=== PATIENT | female | born 1970 | race Caucasian/White ===

== ENCOUNTER 2016-04-02 18:10 | Emergency (ER) | payer OTHER ==
[~2016-04-02] VITALS: Ht 160 cm; Wt 93.0 kg
[~2016-04-02 18:10] MED LIST: ACHD5005 PO; ALPR1TAB2 PO; BTR10SP2 NS; BUSP10TA95 PO; CELEXA; CYCL10TA9 PO; DULO30CA PO; ESTR1TAB24 PO; FURO40TA4 PO; GABA-488 PO; HYDR-91 PO; HYDR1TAB8 OP; STADOL NS; SULF1TAB38 PO; TORADOL 10 MG PO; TRAM50TA2 PO; ZLP10T PO; ZLP5T PO; ZOLP10TA PO
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
[2016-04-02] MEDS ORDERED: ZOLP5TAB7 PO (18:33)
[2016-04-02] MEDS ORDERED: GABA-490 PO (18:33)
[2016-04-02] MEDS ORDERED: GABA600T2 PO (18:33)
[2016-04-02] MEDS ORDERED: ORPH100T PO (18:33)
[2016-04-02 18:54] LABS: BASOPHILS % (AUTO) 1 % (0-10); EOSINOPHILS # (AUTO) 0.4 10^3/uL (0.0-0.3); EOSINOPHILS % (AUTO) 6 % (0-10); LYMPHOCYTES % (AUTO) 28 % (12-44); MEAN CORPUSCULAR HEMOGLOBIN 31 PG (25-34); MEAN CORPUSCULAR HGB CONC 33 G/DL (32-36); MEAN CORPUSCULAR VOLUME 92 FL (80-99); MEAN PLATELET VOLUME 9.5 FL (7.4-10.4); MONOCYTES # (AUTO) 0.5 X 10^3 (0.0-1.0); MONOCYTES % (AUTO) 7 % (0-12); NEUTROPHILS # (AUTO) 4.1 X 10^3 (1.8-7.8); NEUTROPHILS % (AUTO) 58 % (42-75); PLATELET COUNT 249 10^3/uL (130-400); RED CELL DISTRIBUTION WIDTH 14.7 % (10.0-14.5)
--- NOTE | 2016-04-02 19:13 | Diagnostic Imaging Report ---
INDICATION: Seizures. EXAMINATION: Noncontrast brain CT was performed. COMPARISON: 01/26/15. FINDINGS: There are no extra-axial fluid collections. No intracranial hemorrhage. No intracranial mass or mass effect. No midline shift. The ventricles are normal in size and position. There is some asymmetry in the appearance of the frontal horns, which is likely a normal variant, unchanged compared to the prior study. Calvarial windows appear normal. IMPRESSION: No acute intracranial abnormality and no significant change from 01/26/15. Dictated by: Dictated on workstation # [id number]
[2016-04-02 19:14] LABS: ALANINE AMINOTRANSFERASE 13 U/L (0-55); ALBUMIN 3.9 G/DL (3.2-4.5); ALCOHOL 11 MG/DL (<10); ANION GAP 12 MMOL/L (5-14); ASPARTATE AMINO TRANSFERASE 15 U/L (5-34); BILIRUBIN,TOTAL 0.3 MG/DL (0.1-1.0); BLOOD UREA NITROGEN 8 MG/DL (7-18); BUN/CREATININE RATIO 9; CARBON DIOXIDE 25 MMOL/L (21-32); CHLORIDE 104 MMOL/L (98-107); CREATINE KINASE 112 U/L (29-168); CREATININE SERUM 0.88 MG/DL (0.60-1.30); GFR ESTIMATED > 60; GLUCOSE 105 MG/DL (70-105); MAGNESIUM 1.9 MG/DL (1.8-2.4); SODIUM 141 MMOL/L (135-145); TOTAL PROTEIN 6.9 G/DL (6.4-8.2)
[2016-04-02 19:20] LABS: TROPONIN I < 0.30 NG/ML (<0.30)
--- NOTE | 2016-04-02 19:38 | Diagnostic Imaging Report ---
INDICATION: Seizure Frontal chest obtained at 6:47 p.m. with comparison to 11/05/15. Study is limited by very poor inspiration. The heart is mildly enlarged. There is some minimal infiltrate or atelectasis in the right base. Left lung is grossly clear. There is no pneumothorax or pleural fluid. IMPRESSION: Very poor inspiration with cardiomegaly and mild right basilar atelectatic change versus infiltrate. The findings appears similar on the prior study of 11/05/15. Dictated by: Dictated on workstation # [id number]
[2016-04-02 20:08] LABS: BILIRUBIN,URINE NEGATIVE (NEGATIVE); KETONES,URINE NEGATIVE (NEGATIVE); LEUKOCYTE ESTERASE ,URINE NEGATIVE (NEGATIVE); NITRITE,URINE NEGATIVE (NEGATIVE); PH,URINE 6 (5-9); PROTEIN,URINE NEGATIVE (NEGATIVE); UROBILINOGEN,URINE NORMAL (NORMAL)
--- NOTE | 2016-04-02 21:04 | Diagnostic Imaging Report ---
INDICATION: Right clavicle pain. EXAMINATION: AP and oblique views of the right clavicle were obtained. FINDINGS: No fracture or acute bony abnormality is seen. IMPRESSION: Negative right clavicle. Dictated by: Dictated on workstation # [id number]
[2016-04-02 21:10] VITALS: BP 155/81
== END 2016-04-02 21:10 | disposition home or self-care (01) ==
LOC: EDUNIT# 18:10 → ER 18:11
DX: R56.9 Unspecified convulsions (principal); S40.011A Contusion of right shoulder, initial encounter; Z79.899 Other long term (current) drug therapy; W18.30XA Fall on same level, unspecified, initial encounter; Y99.8 Other external cause status
CPT/HCPCS: 36415; 70450; 71010; 73000; 80053; 80306; 80320; 81000; 82550; 83735; 84484; 85025; 93005

== ENCOUNTER → 2016-04-22 | Outpatient (CLI) | payer OTHER ==
[~2016-04-22] MED LIST changes: +AMIT150T PO; +DIAZ5TAB3 PO; +GABA-490 PO; +GABA600T2 PO; +MELO7.5T46 PO; +ORPH100T PO; +ZOLP5TAB7 PO
--- NOTE | 2016-04-30 10:52 | ELECTROENCEPHALOPATHY REPORT ---
PROCEDURE PHYSICIAN: MORRO BOB DATE OF PROCEDURE: 04/22/2016 Ms. Reva Rush is a 46-year-old female who had a seizure episode on 04/04/2016. The family witnessed a tonic-clonic seizure activity. There was no loss of bladder and bowel. The patient has no recollection of the event. The event lasted approximately 2 to 3 minutes. The patient felt extremely tired following the event. This study was requested to evaluate for epileptiform activity. The background rhythm consisted of 9 to 10 Hz, 50 to 70 microvolts in amplitude, bilaterally symmetrical over the vertex region which was reactive to eye opening. Intermix were a few left temporal sharp waves. Pulse movement and muscle artifacts were present. The patient was awake, drowsy and asleep during this recording. Hyperventilation was performed and there was no build-up of diffuse or focal slow wave activity. Intermittent photic stimulation was done at various flash frequencies and no photic driving response was seen. IMPRESSION: This EEG is abnormal in awake and sleepy states. The epileptiform activity described above is suggestive of a seizure focus in the left temporal lobe. Clinical correlation is suggested. Job ID: [id number] Dictated Date: 04/30/2016 10:30:16 Transition Coach Date: 04/30/2016 10:48:42 / tyree
== END ==
LOC: RT 09:16
PROVIDERS: ATTEND Nurse Practitioner Community Health
DX: R55 Syncope and collapse (principal)
CPT/HCPCS: 95819

== ENCOUNTER 2016-05-30 20:11 | Emergency (ER) | payer SELFPAY ==
[~2016-05-30] VITALS: Ht 160 cm; Wt 93.4 kg
[~2016-05-30 20:11] MED LIST changes: -AMIT150T PO; -DIAZ5TAB3 PO; -MELO7.5T46 PO
[2016-05-30] MEDS ORDERED: DIAZ5TAB3 PO (20:36)
[2016-05-30] MEDS ORDERED: MELO7.5T46 PO (20:36)
[2016-05-30] MEDS ORDERED: ESTR1TAB24 PO (20:36)
[2016-05-30] MEDS ORDERED: AMIT150T PO (20:36)
[2016-05-30] MEDS ORDERED: diphenhydrAMINE 50 MG/ML INJ (BENADRYL) IM STA (20:55)
[2016-05-30] MEDS ORDERED: KETOROLAC 60 MG/2 ML VIAL IM STA (20:55)
[2016-05-30] MEDS ORDERED: PROCHLORPERAZINE 10 MG/2ML INJ (COMPAZINE) IM ONE (21:00)
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
[2016-05-30] MEDS ORDERED: ACET/BUTAL/CAFF (FIORICET) TAB PO PRN (21:45)
[2016-05-30 21:59] VITALS: BP 146/78
== END 2016-05-30 21:58 | disposition home or self-care (01) ==
LOC: EDUNIT# 20:11 → ER 20:12
DX: G43.909 Migraine, unspecified, not intractable, without status migrainosus (principal)
CPT/HCPCS: 96372; 99282

== ENCOUNTER → 2016-07-28 | Outpatient (CLI) | payer OTHER ==
[~2016-07-28] MED LIST changes: +AMIT150T PO; +DIAZ5TAB3 PO; +GADOBUTROL 10 MMOL/10 ML (GADAVIST) VIAL IV ONE; +MELO7.5T46 PO
== END ==
DX: G40.909 Epilepsy, unspecified, not intractable, without status epilepticus (principal)

== ENCOUNTER → 2016-08-30 | Outpatient (CLI) | payer OTHER ==
[~2016-08-30] MED LIST changes: -GADOBUTROL 10 MMOL/10 ML (GADAVIST) VIAL IV ONE; +ONDA8TAB9 PO
--- NOTE | 2016-08-30 18:15 | Diagnostic Imaging Report ---
PROCEDURE: CT head without contrast. TECHNIQUE: Multiple contiguous axial images were obtained through the brain without the use of intravenous contrast. INDICATION: New onset seizures. COMPARISON: Exam compared 04/02/2016. FINDINGS: Exam is stable and negative. There is no hemorrhage, hydrocephalus, edema, mass or mass effect. The basilar cisterns patent, the sulci non-effaced. The orbits, sinuses and calvarium are within normal limits. IMPRESSION: No acute appearing abnormality. Dictated by: Dictated on workstation # [id number]
== END ==
LOC: RAD 17:48
PROVIDERS: ATTEND Internal Medicine
DX: S09.90XA Unspecified injury of head, initial encounter (principal); G40.909 Epilepsy, unspecified, not intractable, without status epilepticus; X58.XXXA Exposure to other specified factors, initial encounter; Y99.8 Other external cause status
CPT/HCPCS: 70450

== ENCOUNTER 2016-12-02 10:53 | Emergency (ER) | payer OTHER ==
[~2016-12-02] VITALS: Ht 160 cm; Wt 93.0 kg
[~2016-12-02 10:53] MED LIST changes: -ONDA8TAB9 PO
--- OUTSIDE RECORDS SUMMARY | 2016-12-02 11:03 | XMS REPORT | Continuity of Care Document ---
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
--- OUTSIDE RECORDS SUMMARY | 2016-12-02 11:04 | XMS REPORT ---
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 Active 72080224 Problem Abnormal EEG R94.01 Active 280883678 Problem Chronic tension-type headache, not intractable G44.229 Active 498847609 Problem Major depressive disorder, recurrent, moderate F33.1 Active 80893361 Problem Migraine with intractable migraine, so stated, with status migrainosus G43.911 Active 141837474 Problem Epilepsy, unspecified, not intractable, without status epilepticus G40.909 Active 597842838 Problem Chondromalacia patellae, 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 Active 58041314 Problem Migraine, unspecified, not intractable, without status migrainosus G43.909 Active 11548101 Problem Syncope and collapse R55 Active 171973036 Problem Need for prophylaxis against urinary tract infection Z29.8 Active 563114621 Problem Post-traumatic stress disorder, chronic F43.12 Active 57110778 Problem Low back pain M54.5 Active 773651153 Problem Fibromyalgia muscle pain M79.7 Active 28486965 Problem Essential (primary) hypertension I10 Active 43833722 Problem Pulmonary edema J81.1 Active 64973269 Problem Arthritis of right hip M19.90 Active 78786929 Problem Orthostatic hypotension I95.1 Active 66544723 Problem Insomnia, unspecified type G47.00 Active 270632810 Problem Dizziness R42 Active 923417937 Problem Falling R29.6 Active 113260344 ALLERGIES Unknown Allergies SOCIAL HISTORY No smoking Hx information available PLAN OF CARE VITAL SIGNS MEDICATIONS Unknown Medications RESULTS No Results PROCEDURES Procedure Date Ordered Related Diagnosis Body Site TORADOL (IM) 60 MG/2ML (UP TO 15 MG) Feb 22, 2016 THER/PROPH/DIAG INJ, SC/IM Feb 22, 2016 PHENERGAN 50MG/ML Feb 22, 2016 IMMUNIZATIONS Vaccine Route Administration Date Status PHENERGAN 50MG/ML IM Intramuscular Feb 22, 2016 Administered TORADOL (IM) 60 MG/2ML (UP TO 15 MG) IM Intramuscular Feb 22, 2016 Administered
--- OUTSIDE RECORDS SUMMARY | 2016-12-02 11:04 | XMS REPORT ---
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 Active 90882641 Problem Abnormal EEG R94.01 Active 281586212 Problem Chronic tension-type headache, not intractable G44.229 Active 962910625 Problem Major depressive disorder, recurrent, moderate F33.1 Active 85438057 Problem Migraine with intractable migraine, so stated, with status migrainosus G43.911 Active 004045443 Problem Epilepsy, unspecified, not intractable, without status epilepticus G40.909 Active 124713596 Problem Chondromalacia patellae, 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 Active 84819720 Problem Migraine, unspecified, not intractable, without status migrainosus G43.909 Active 22964739 Problem Syncope and collapse R55 Active 520291886 Problem Need for prophylaxis against urinary tract infection Z29.8 Active 875875488 Problem Post-traumatic stress disorder, chronic F43.12 Active 20965047 Problem Low back pain M54.5 Active 958200031 Problem Fibromyalgia muscle pain M79.7 Active 84844346 Problem Essential (primary) hypertension I10 Active 34001233 Problem Pulmonary edema J81.1 Active 91327491 Problem Arthritis of right hip M19.90 Active 08311041 Problem Orthostatic hypotension I95.1 Active 40479806 Problem Insomnia, unspecified type G47.00 Active 112360409 Problem Dizziness R42 Active 127575164 Problem Falling R29.6 Active 797497090 ALLERGIES Unknown Allergies SOCIAL HISTORY No smoking Hx information available PLAN OF CARE VITAL SIGNS MEDICATIONS Medication Instructions Dosage Frequency Start Date End Date Duration Status Ambien 5 MG Orally Once a day 1 tablet at bedtime 24h Apr, 28 days Active Valium 5 MG Orally Once a day. May repeat in 2 hours for migraine 1 tablet as needed Jul, 28 days Active RESULTS No Results PROCEDURES No Known procedures IMMUNIZATIONS No Known Immunizations
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
--- OUTSIDE RECORDS SUMMARY | 2016-12-02 11:05 | XMS REPORT ---
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 Active 44027000 Problem Abnormal EEG R94.01 Active 324586645 Problem Chronic tension-type headache, not intractable G44.229 Active 439688836 Problem Major depressive disorder, recurrent, moderate F33.1 Active 62656573 Problem Migraine with intractable migraine, so stated, with status migrainosus G43.911 Active 541706394 Problem Epilepsy, unspecified, not intractable, without status epilepticus G40.909 Active 567629817 Problem Chondromalacia patellae, 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 Active 51070463 Problem Migraine, unspecified, not intractable, without status migrainosus G43.909 Active 82760772 Problem Syncope and collapse R55 Active 715239602 Problem Need for prophylaxis against urinary tract infection Z29.8 Active 446733666 Problem Post-traumatic stress disorder, chronic F43.12 Active 95405251 Problem Low back pain M54.5 Active 212632205 Problem Fibromyalgia muscle pain M79.7 Active 13321189 Problem Essential (primary) hypertension I10 Active 54225706 Problem Pulmonary edema J81.1 Active 66301826 Problem Arthritis of right hip M19.90 Active 06335854 Problem Orthostatic hypotension I95.1 Active 05893599 Problem Insomnia, unspecified type G47.00 Active 133866013 Problem Dizziness R42 Active 296982148 Problem Falling R29.6 Active 276729298 ALLERGIES No Information SOCIAL HISTORY Never Assessed PLAN OF CARE Activity Details Follow Up 2 Weeks Reason: VITAL SIGNS MEDICATIONS Unknown Medications RESULTS No Results PROCEDURES Procedure Date Ordered Result Body Site Psychotherapy, patient &/family, 30 minutes, established patient April 11, 2016 IMMUNIZATIONS No Known Immunizations MEDICAL (GENERAL) HISTORY [...]
--- OUTSIDE RECORDS SUMMARY | 2016-12-02 11:08 | XMS REPORT ---
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 Active 90389571 Problem Abnormal EEG R94.01 Active 845555152 Problem Chronic tension-type headache, not intractable G44.229 Active 891615954 Problem Major depressive disorder, recurrent, moderate F33.1 Active 15831133 Problem Migraine with intractable migraine, so stated, with status migrainosus G43.911 Active 742921912 Problem Epilepsy, unspecified, not intractable, without status epilepticus G40.909 Active 801928286 Problem Chondromalacia patellae, 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 Active 65908597 Problem Migraine, unspecified, not intractable, without status migrainosus G43.909 Active 24612990 Problem Syncope and collapse R55 Active 101381686 Problem Need for prophylaxis against urinary tract infection Z29.8 Active 068586970 Problem Post-traumatic stress disorder, chronic F43.12 Active 71067283 Problem Low back pain M54.5 Active 052109976 Problem Fibromyalgia muscle pain M79.7 Active 02854463 Problem Essential (primary) hypertension I10 Active 31519444 Problem Pulmonary edema J81.1 Active 70331238 Problem Arthritis of right hip M19.90 Active 88642980 Problem Orthostatic hypotension I95.1 Active 43999346 Problem Insomnia, unspecified type G47.00 Active 410512941 Problem Dizziness R42 Active 955274981 Problem Falling R29.6 Active 473999642 ALLERGIES Substance Reaction Event Type Date Status Lorazepam Narc Alert pt not taking Drug Allergy Mar, Active Diclofenac Sodium nausea and vomiting Drug Allergy Mar, Active SOCIAL HISTORY Never Assessed PLAN OF CARE Activity Details Follow Up 4 Weeks Reason:seizures VITAL SIGNS Height 68 in 2016-04-04 Weight 205 lbs 2016-04-04 Temperature 98.1 degrees Fahrenheit 2016-04-04 Heart Rate 72 bpm 2016-04-04 Respiratory Rate 18 2016-04-04 BMI 31.17 kg/m2 2016-04-04 Blood pressure systolic 130 mmHg 2016-04-04 Blood pressure diastolic 80 mmHg 2016-04-04 MEDICATIONS Medication Instructions Dosage Frequency Start Date End Date Duration Status Valium 5 MG Orally Once a day. May repeat in 2 hours for migraine 1 tablet as needed Jul, 28 days Active Ketorolac Tromethamine 60 MG/2ML Intramuscular once monthly 2 ml as needed Oct, Active Gabapentin 600 MG Orally Three times a day along with 400mg 1 tablet 30 days Active Ambien 5 MG Orally Once a day 1 tablet at bedtime 24h Apr, 28 days Active Amitriptyline HCl 150 MG Orally Once a day at bedtime 1 tablet Active Orphenadrine Citrate ER 100 MG TAKE ONE TABLET BY MOUTH TWICE DAILY 30 Active Butorphanol Tartrate 10 MG/ML Nasally every 12 hrs MUST LAST 2 MONTHS 1 ml as needed Jul, 60 days Active Meloxicam 7.5 MG Orally 2 times a day 1 tablet 12h 30 Active Phenergan 50 mg Injection once monthly 1 ml as needed Oct, Active Neurontin 400 mg Orally Three times a day to be taken with the 600mg 1 capsule 30 days Active Cymbalta 60 mg Orally Once a day 1 capsule 24h Active Estradiol 1 MG Orally Once a day TAKE ONE TABLET BY MOUTH ONCE DAILY 24h 30 Active Depakote 500 mg Orally at bedtime for 4 days then 1 tab twice a day as directed Mar, 30 days Active RESULTS No Results PROCEDURES Procedure Date Ordered Result Body Site EEG 2016-04-04 Abnormal IMMUNIZATIONS No Known Immunizations MEDICAL (GENERAL) HISTORY [...]
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
--- OUTSIDE RECORDS SUMMARY | 2016-12-02 11:08 | XMS REPORT ---
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 Active 40350544 Problem Migraine, unspecified, not intractable, without status migrainosus G43.909 Active 98297718 Problem Chronic tension-type headache, not intractable G44.229 Active 285951445 Problem Major depressive disorder, recurrent, moderate F33.1 Active 17764265 Problem Essential (primary) hypertension I10 Active 71483428 Problem Epilepsy, unspecified, not intractable, without status epilepticus G40.909 Active 953878113 Problem Chondromalacia patellae, 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 Active 49548368 Problem Abnormal EEG R94.01 Active 044050529 Problem Syncope and collapse R55 Active 606514842 Problem Need for prophylaxis against urinary tract infection Z29.8 Active 559315238 Problem Post-traumatic stress disorder, chronic F43.12 Active 27972181 Problem Low back pain M54.5 Active 865988783 Problem Migraine with intractable migraine, so stated, with status migrainosus G43.911 Active 518616163 Problem Fibromyalgia muscle pain M79.7 Active 20847287 Problem Dizziness R42 Active 667513104 Problem Arthritis of right hip M19.90 Active 64229872 Problem Orthostatic hypotension I95.1 Active 07392514 Problem Insomnia, unspecified type G47.00 Active 153099888 Problem Pulmonary edema J81.1 Active 59078248 Problem Falling R29.6 Active 293988301 ALLERGIES Unknown Allergies SOCIAL HISTORY No smoking Hx information available PLAN OF CARE Activity Details Follow Up 2 Weeks Reason: VITAL SIGNS MEDICATIONS Unknown Medications RESULTS No Results PROCEDURES Procedure Date Ordered Related Diagnosis Body Site Psychotherapy, patient &/family, 45 minutes, established patient Jan 12, 2016 IMMUNIZATIONS No Known Immunizations
--- OUTSIDE RECORDS SUMMARY | 2016-12-02 11:09 | XMS REPORT ---
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 Active 37681467 Problem Abnormal EEG R94.01 Active 941343689 Problem Chronic tension-type headache, not intractable G44.229 Active 127837731 Problem Major depressive disorder, recurrent, moderate F33.1 Active 50382896 Problem Migraine with intractable migraine, so stated, with status migrainosus G43.911 Active 418468982 Problem Epilepsy, unspecified, not intractable, without status epilepticus G40.909 Active 391776946 Problem Chondromalacia patellae, 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 Active 17974959 Problem Migraine, unspecified, not intractable, without status migrainosus G43.909 Active 36645017 Problem Syncope and collapse R55 Active 782603876 Problem Need for prophylaxis against urinary tract infection Z29.8 Active 591340141 Problem Post-traumatic stress disorder, chronic F43.12 Active 30596636 Problem Low back pain M54.5 Active 721345400 Problem Fibromyalgia muscle pain M79.7 Active 24002362 Problem Essential (primary) hypertension I10 Active 99969053 Problem Pulmonary edema J81.1 Active 98704027 Problem Arthritis of right hip M19.90 Active 91436557 Problem Orthostatic hypotension I95.1 Active 94612928 Problem Insomnia, unspecified type G47.00 Active 392230429 Problem Dizziness R42 Active 662331800 Problem Falling R29.6 Active 444633194 ALLERGIES No Information SOCIAL HISTORY Never Assessed [...]
--- OUTSIDE RECORDS SUMMARY | 2016-12-02 11:09 | XMS REPORT ---
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 Active 61129871 Problem Migraine, unspecified, not intractable, without status migrainosus G43.909 Active 21472100 Problem Chronic tension-type headache, not intractable G44.229 Active 581730000 Problem Major depressive disorder, recurrent, moderate F33.1 Active 74455193 Problem Essential (primary) hypertension I10 Active 71513785 Problem Epilepsy, unspecified, not intractable, without status epilepticus G40.909 Active 165704135 Problem Chondromalacia patellae, 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 Active 78494669 Problem Abnormal EEG R94.01 Active 604818934 Problem Syncope and collapse R55 Active 856179077 Problem Need for prophylaxis against urinary tract infection Z29.8 Active 438179594 Problem Post-traumatic stress disorder, chronic F43.12 Active 40139848 Problem Low back pain M54.5 Active 040246093 Problem Migraine with intractable migraine, so stated, with status migrainosus G43.911 Active 001766543 Problem Fibromyalgia muscle pain M79.7 Active 47847742 Problem Dizziness R42 Active 722297964 Problem Arthritis of right hip M19.90 Active 69829946 Problem Orthostatic hypotension I95.1 Active 59616145 Problem Insomnia, unspecified type G47.00 Active 434705094 Problem Pulmonary edema J81.1 Active 71043709 Problem Falling R29.6 Active 253702676 ALLERGIES Unknown Allergies SOCIAL HISTORY No smoking Hx information available PLAN OF CARE Activity Details Follow Up prn Reason: VITAL SIGNS Height 68 in 2016-01-28 Blood pressure systolic 122 mmHg 2016-01-28 Blood pressure diastolic 84 mmHg 2016-01-28 MEDICATIONS Unknown Medications RESULTS No Results PROCEDURES Procedure Date Ordered Related Diagnosis Body Site JOINT INJECTION-INTERMEDIATE JOINT 2016-01-28 N/A DRAIN/INJECT, JOINT/BURSA Jan 28, 2016 DEPO MEDROL 80 MG/ML Jan 28, 2016 Office Visit, Est Pt., Level 3 Jan 28, 2016 IMMUNIZATIONS No Known Immunizations
--- OUTSIDE RECORDS SUMMARY | 2016-12-02 11:09 | XMS REPORT ---
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 Active 31611318 Problem Abnormal EEG R94.01 Active 318320469 Problem Chronic tension-type headache, not intractable G44.229 Active 905357164 Problem Major depressive disorder, recurrent, moderate F33.1 Active 25143991 Problem Migraine with intractable migraine, so stated, with status migrainosus G43.911 Active 744366417 Problem Epilepsy, unspecified, not intractable, without status epilepticus G40.909 Active 132642827 Problem Chondromalacia patellae, 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 Active 36693809 Problem Migraine, unspecified, not intractable, without status migrainosus G43.909 Active 69749607 Problem Syncope and collapse R55 Active 575592352 Problem Need for prophylaxis against urinary tract infection Z29.8 Active 403141648 Problem Post-traumatic stress disorder, chronic F43.12 Active 70379105 Problem Low back pain M54.5 Active 102907351 Problem Fibromyalgia muscle pain M79.7 Active 90104795 Problem Essential (primary) hypertension I10 Active 89117608 Problem Pulmonary edema J81.1 Active 93225773 Problem Arthritis of right hip M19.90 Active 80862163 Problem Orthostatic hypotension I95.1 Active 73689855 Problem Insomnia, unspecified type G47.00 Active 497743708 Problem Dizziness R42 Active 427609915 Problem Falling R29.6 Active 009506607 ALLERGIES Unknown Allergies SOCIAL HISTORY No smoking Hx information available PLAN OF CARE VITAL SIGNS MEDICATIONS Medication Instructions Dosage Frequency Start Date End Date Duration Status Valium 5 MG Orally Once a day. May repeat in 2 hours for migraine 1 tablet as needed Jul, 28 days Active Ambien 5 MG Orally Once a day 1 tablet at bedtime 24h Apr, 28 days Active RESULTS No Results PROCEDURES No Known procedures IMMUNIZATIONS No Known Immunizations
--- OUTSIDE RECORDS SUMMARY | 2016-12-02 11:09 | XMS REPORT ---
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 Active 27697737 Problem Abnormal EEG R94.01 Active 287675646 Problem Chronic tension-type headache, not intractable G44.229 Active 036469964 Problem Major depressive disorder, recurrent, moderate F33.1 Active 06389987 Problem Migraine with intractable migraine, so stated, with status migrainosus G43.911 Active 525469828 Problem Epilepsy, unspecified, not intractable, without status epilepticus G40.909 Active 635679131 Problem Chondromalacia patellae, 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 Active 82549479 Problem Migraine, unspecified, not intractable, without status migrainosus G43.909 Active 94633097 Problem Syncope and collapse R55 Active 423098630 Problem Need for prophylaxis against urinary tract infection Z29.8 Active 360446671 Problem Post-traumatic stress disorder, chronic F43.12 Active 26215192 Problem Low back pain M54.5 Active 846357834 Problem Fibromyalgia muscle pain M79.7 Active 27734223 Problem Essential (primary) hypertension I10 Active 63505034 Problem Pulmonary edema J81.1 Active 18388238 Problem Arthritis of right hip M19.90 Active 45046910 Problem Orthostatic hypotension I95.1 Active 22893277 Problem Insomnia, unspecified type G47.00 Active 804944749 Problem Dizziness R42 Active 350217336 Problem Falling R29.6 Active 478436617 ALLERGIES No Information SOCIAL HISTORY Never Assessed PLAN OF CARE VITAL SIGNS MEDICATIONS Medication Instructions Dosage Frequency Start Date End Date Duration Status Phenergan 50 mg Injection once monthly 1 ml as needed Oct, Active Butorphanol Tartrate 10 MG/ML Nasally every 12 hrs MUST LAST 2 MONTHS 1 ml as needed Jul, 60 days Active Meloxicam 7.5 MG Orally 2 times a day 1 tablet 12h 30 Active Valium 5 MG Orally Once a day. May repeat in 2 hours for migraine 1 tablet as needed Jul, 28 days Active Neurontin 400 MG Orally Three times a day to be taken with the 600mg 1 capsule 30 days Active Ketorolac Tromethamine 60 MG/2ML Intramuscular once monthly 2 ml as needed Oct, Active Orphenadrine Citrate ER 100 MG TAKE ONE TABLET BY MOUTH TWICE DAILY 30 Active Gabapentin 600 MG Orally Three times a day along with 400mg 1 tablet 30 days Active Cymbalta 60 mg TAKE TWO CAPSULES BY MOUTH ONCE DAILY Active Ambien 5 MG Orally Once a day 1 tablet at bedtime 24h Apr, 28 days Active RESULTS No Results PROCEDURES Procedure Date Ordered Result Body Site TORADOL (IM) 60 MG/2ML (UP TO 15 MG) Mar 31, 2016 THER/PROPH/DIAG INJ, SC/IM Mar 31, 2016 PHENERGAN 50MG/ML Mar 31, 2016 IMMUNIZATIONS Vaccine Route Administration Date Status PHENERGAN 50MG/ML IM Intramuscular Mar 31, 2016 Administered TORADOL (IM) 60 MG/2ML (UP TO 15 MG) IM Intramuscular Mar 31, 2016 Administered MEDICAL (GENERAL) HISTORY Type Description Date Medical [...]
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
--- OUTSIDE RECORDS SUMMARY | 2016-12-02 11:10 | XMS REPORT ---
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 Active 68854373 Problem Abnormal EEG R94.01 Active 729940897 Problem Chronic tension-type headache, not intractable G44.229 Active 482334389 Problem Major depressive disorder, recurrent, moderate F33.1 Active 13339761 Problem Migraine with intractable migraine, so stated, with status migrainosus G43.911 Active 962903178 Problem Epilepsy, unspecified, not intractable, without status epilepticus G40.909 Active 423933428 Problem Chondromalacia patellae, 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 Active 54544861 Problem Migraine, unspecified, not intractable, without status migrainosus G43.909 Active 31697394 Problem Syncope and collapse R55 Active 112217059 Problem Need for prophylaxis against urinary tract infection Z29.8 Active 374914795 Problem Post-traumatic stress disorder, chronic F43.12 Active 08953637 Problem Low back pain M54.5 Active 756584124 Problem Fibromyalgia muscle pain M79.7 Active 91060774 Problem Essential (primary) hypertension I10 Active 18390841 Problem Pulmonary edema J81.1 Active 10384895 Problem Arthritis of right hip M19.90 Active 88038169 Problem Orthostatic hypotension I95.1 Active 03439462 Problem Insomnia, unspecified type G47.00 Active 739230774 Problem Dizziness R42 Active 004350553 Problem Falling R29.6 Active 959521584 ALLERGIES No Information SOCIAL HISTORY Never Assessed PLAN OF CARE Activity Details Follow Up 2 Weeks Reason:F/U PT VITAL SIGNS MEDICATIONS Unknown Medications RESULTS No Results PROCEDURES Procedure Date Ordered Result Body Site PT EVAL MOD COMPLEX 30 MIN April 11, 2016 THERAPEUTIC EXERCISES April 11, 2016 IMMUNIZATIONS No Known Immunizations [...]
--- OUTSIDE RECORDS SUMMARY | 2016-12-02 11:10 | XMS REPORT ---
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 Active 13610181 Problem Abnormal EEG R94.01 Active 582285075 Problem Chronic tension-type headache, not intractable G44.229 Active 849903029 Problem Major depressive disorder, recurrent, moderate F33.1 Active 17283733 Problem Migraine with intractable migraine, so stated, with status migrainosus G43.911 Active 205304179 Problem Epilepsy, unspecified, not intractable, without status epilepticus G40.909 Active 928025867 Problem Chondromalacia patellae, 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 Active 98966476 Problem Migraine, unspecified, not intractable, without status migrainosus G43.909 Active 78822727 Problem Syncope and collapse R55 Active 598952953 Problem Need for prophylaxis against urinary tract infection Z29.8 Active 732294500 Problem Post-traumatic stress disorder, chronic F43.12 Active 72909778 Problem Low back pain M54.5 Active 962548293 Problem Fibromyalgia muscle pain M79.7 Active 06771810 Problem Essential (primary) hypertension I10 Active 33228767 Problem Pulmonary edema J81.1 Active 76691478 Problem Arthritis of right hip M19.90 Active 83498193 Problem Orthostatic hypotension I95.1 Active 56686907 Problem Insomnia, unspecified type G47.00 Active 266544602 Problem Dizziness R42 Active 462317600 Problem Falling R29.6 Active 574004446 ALLERGIES Substance Reaction Event Type Date Status Lorazepam Narc Alert pt not taking Drug Allergy Feb, Active Diclofenac Sodium nausea and vomiting Drug Allergy Feb, Active SOCIAL HISTORY No smoking Hx information available PLAN OF CARE Activity Details Follow Up prn Reason: VITAL SIGNS Height 68 in 2016-02-24 Weight 204.1 lbs 2016-02-24 Temperature 97.9 degrees Fahrenheit 2016-02-24 Heart Rate 88 bpm 2016-02-24 Respiratory Rate 20 2016-02-24 Oximetry on room air:96 % 2016-02-24 BMI 31.03 kg/m2 2016-02-24 Blood pressure systolic 118 mmHg 2016-02-24 Blood pressure diastolic 78 mmHg 2016-02-24 MEDICATIONS Medication Instructions Dosage Frequency Start Date End Date Duration Status Cymbalta 60 mg TAKE TWO CAPSULES BY MOUTH ONCE DAILY Active Gabapentin 600 MG Orally Three times a day along with 400mg 1 tablet 30 days Active Neurontin 400 MG Orally Three times a day to be taken with the 600mg 1 capsule 30 days Active Ambien 5 MG Orally Once a day 1 tablet at bedtime 24h Apr, 28 days Active Valium 5 MG Orally Once a day. May repeat in 2 hours for migraine 1 tablet as needed Jul, 28 days Active Meloxicam 7.5 MG Orally 2 times a day 1 tablet 12h 30 Active Ketorolac Tromethamine 60 MG/2ML Intramuscular once monthly 1 ml as needed Oct, Active Butorphanol Tartrate 10 MG/ML Nasally every 12 hrs MUST LAST 2 MONTHS 1 ml as needed Jul, 60 days Active Orphenadrine Citrate ER 100 MG TAKE ONE TABLET BY MOUTH TWICE DAILY 30 Active Phenergan 50 mg Injection once monthly 1 ml as needed Oct, Active RESULTS No Results PROCEDURES Procedure Date Ordered Related Diagnosis Body Site MEASURE BLOOD OXYGEN LEVEL Feb 24, 2016 Office Visit, Est Pt., Level 3 Feb 24, 2016 IMMUNIZATIONS No Known Immunizations
--- OUTSIDE RECORDS SUMMARY | 2016-12-02 11:10 | XMS REPORT ---
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 Active 28631805 Problem Abnormal EEG R94.01 Active 984870840 Problem Chronic tension-type headache, not intractable G44.229 Active 184633192 Problem Major depressive disorder, recurrent, moderate F33.1 Active 25394441 Problem Migraine with intractable migraine, so stated, with status migrainosus G43.911 Active 987892446 Problem Epilepsy, unspecified, not intractable, without status epilepticus G40.909 Active 282088661 Problem Chondromalacia patellae, 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 Active 80607827 Problem Migraine, unspecified, not intractable, without status migrainosus G43.909 Active 91390615 Problem Syncope and collapse R55 Active 723575201 Problem Need for prophylaxis against urinary tract infection Z29.8 Active 227657709 Problem Post-traumatic stress disorder, chronic F43.12 Active 32196517 Problem Low back pain M54.5 Active 286587854 Problem Fibromyalgia muscle pain M79.7 Active 49152147 Problem Essential (primary) hypertension I10 Active 83501848 Problem Pulmonary edema J81.1 Active 70042426 Problem Arthritis of right hip M19.90 Active 33044576 Problem Orthostatic hypotension I95.1 Active 44234362 Problem Insomnia, unspecified type G47.00 Active 169180048 Problem Dizziness R42 Active 743913231 Problem Falling R29.6 Active 412234408 ALLERGIES No Information SOCIAL HISTORY Never Assessed PLAN OF CARE Activity Details Follow Up 2 Weeks Reason: VITAL SIGNS MEDICATIONS Unknown Medications RESULTS No Results PROCEDURES Procedure Date Ordered Result Body Site Psychotherapy, patient &/family, 45 minutes, established patient Mar 14, 2016 IMMUNIZATIONS No Known Immunizations MEDICAL (GENERAL) [...]
[2016-12-02] MEDS ORDERED: ACET/BUTAL/CAFF (FIORICET) TAB PO PRN (11:15)
[2016-12-02] MEDS ORDERED: ONDANSETRON 4 MG (ZOFRAN) ORAL DISSOLVE TAB PO ONE (11:15)
--- NOTE | 2016-12-02 11:55 | Diagnostic Imaging Report ---
EXAM: LUMBAR SPINE - 2-3 VIEWS INDICATION: Seizure. Fall. Low back pain. COMPARISON: None. FINDINGS: There are 5 lumbar type vertebral bodies. Mild degenerative endplate changes in the lower thoracic spine. Vertebral body heights are preserved. Normal alignment. Surgical clips in the right abdomen. IMPRESSION: No acute radiographic findings in the lumbar spine. Dictated by: Dictated on workstation # [id number]
[2016-12-02] MEDS ORDERED: ONDA8TAB9 PO (12:01)
--- NOTE | 2016-12-02 12:09 | Diagnostic Imaging Report ---
PROCEDURE: CT head and CT cervical spine without contrast. TECHNIQUE: Multiple contiguous axial images were obtained through the brain and cervical spine without the use of intravenous contrast. Sagittal and coronal reformations through the cervical spine were then performed. INDICATION: Fall. Vomiting. Remote head injury. COMPARISON: CT head without contrast 08/30/2016. FINDINGS: CT HEAD: No intracranial hemorrhage, mass effect, hydrocephalus or extra-axial fluid collections. Osseous structures are intact. The visualized paranasal sinuses and mastoids are clear. CT CERVICAL SPINE: Straightening of the normal cervical lordosis. Alignment is otherwise unremarkable. Vertebral body heights are preserved. No acute fractures. No evidence of high-grade spinal canal narrowing on this noncontrast exam. The visualized paravertebral soft tissues are unremarkable. The lung apices are clear. IMPRESSION: 1. No acute intracranial CT findings. 2. Straightening of the normal cervical lordosis may be positional or due to muscle spasm. No cervical spine fractures. Dictated by: Dictated on workstation # [id number]
--- NOTE | 2016-12-02 12:12 | Diagnostic Imaging Report ---
EXAM: 2 views of the right hip. INDICATION: Fall. FINDINGS: No fracture, dislocation or radiopaque foreign body. The right hip joint and SI joints demonstrate no significant arthritic changes. IMPRESSION: No fracture is seen. Dictated by: Dictated on workstation # [id number]
[2016-12-02 12:53] VITALS: BP 124/103
[2016-12-02] MEDS ORDERED: KETOROLAC 60 MG/2 ML VIAL IM ONE (13:00)
== END 2016-12-02 12:53 | disposition home or self-care (01) ==
LOC: EDUNIT# 10:53 → ER 10:55
DX: S06.0X0A Concussion without loss of consciousness, initial encounter (principal); R51 Headache; G40.909 Epilepsy, unspecified, not intractable, without status epilepticus; F32.9 Major depressive disorder, single episode, unspecified; G43.909 Migraine, unspecified, not intractable, without status migrainosus; Z90.710 Acquired absence of both cervix and uterus; Z87.59 Personal history of other complications of pregnancy, childbirth and the puerperium; W07.XXXA Fall from chair, initial encounter
CPT/HCPCS: 70450; 72100; 72125; 73502; 99284

== ENCOUNTER → 2018-01-17 | Outpatient (CLI) | payer OTHER ==
[~2018-01-17] MED LIST changes: +ONDA8TAB9 PO
--- NOTE | 2018-01-17 13:18 | Diagnostic Imaging Report ---
EXAMINATION: Digital mammogram bilateral diagnostic with 3D tomosynthesis and CAD. INDICATION: Right breast pain. COMPARISON: This study was compared to the prior exam of 06/19/2012. PERSONAL HISTORY: At this time, the patient does complain of pain in the right breast. FINDINGS: There are scattered fibroglandular densities in both breasts which could obscure a lesion. Overall, there does not appear to have been any significant change when compared to the prior exam. There is no primary or secondary sign of malignancy noted. There is no acute abnormality to account for the patient's right breast pain either. IMPRESSION: 1. There is no evidence for malignancy or for an acute abnormality. 2. Ultrasound of the right breast is pending for further evaluation. ACR BI-RADS Category 0: Incomplete. (Needs additional imaging evaluation). Result letter will be mailed to the patient. Note: At least 10% of breast cancer is not imaged by mammography. Dictated by: Dictated on workstation # [id number]
--- NOTE | 2018-01-17 14:49 | Diagnostic Imaging Report ---
EXAMINATION: Right breast ultrasound INDICATION: Breast pain The diagnostic mammogram performed earlier today failed to show any sign of malignancy. There is no evidence for an acute abnormality to account for patient's right breast pain either. The ultrasound examination of the right breast shows no discrete solid or cystic mass. There is no sign of an abscess either. IMPRESSION: There is no evidence for malignancy or for an acute abnormality. Clinical followup is recommended. ACR BI-RADS Category 1: Negative. Dictated by: Dictated on workstation # [id number]
== END ==
LOC: RAD 12:31
PROVIDERS: ATTEND Nurse Practitioner Community Health
DX: N64.4 Mastodynia (principal)
CPT/HCPCS: 76641; 77066

== ENCOUNTER 2019-04-14 12:25 | Emergency (ER) | payer SELFPAY ==
[~2019-04-14] VITALS: Ht 160 cm; Wt 89.3 kg
[~2019-04-14 12:25] MED LIST changes: -DIAZ5TAB3 PO; +DIAZ5TAB49 PO; -GABA600T2 PO; +GBPN600T PO; -TRAM50TA2 PO; +TRM50T PO
[2019-04-14] MEDS ORDERED: ASPIRIN 81 MG CHEW (CHILDREN'S ASA) PO ONE (12:45)
[2019-04-14] MEDS ORDERED: NS IV 1000 ML 1,000 ML IV ONE (12:45)
[2019-04-14 12:46] LABS: BASOPHILS % (AUTO) 1 % (0-10); EOSINOPHILS # (AUTO) 0.1 10^3/uL (0.0-0.3); EOSINOPHILS % (AUTO) 1 % (0-10); HEMATOCRIT 42 % (35-52); HEMOGLOBIN 13.5 G/DL (11.5-16.0); LYMPHOCYTES # (AUTO) 2.5 X 10^3 (1.0-4.0); LYMPHOCYTES % (AUTO) 42 % (12-44); MEAN CORPUSCULAR HEMOGLOBIN 27 PG (25-34); MEAN CORPUSCULAR HGB CONC 33 G/DL (32-36); MEAN CORPUSCULAR VOLUME 84 FL (80-99); MEAN PLATELET VOLUME 9.7 FL (7.4-10.4); MONOCYTES # (AUTO) 0.6 X 10^3 (0.0-1.0); MONOCYTES % (AUTO) 10 % (0-12); NEUTROPHILS # (AUTO) 2.8 X 10^3 (1.8-7.8); NEUTROPHILS % (AUTO) 47 % (42-75); PLATELET COUNT 275 10^3/uL (130-400); RED CELL DISTRIBUTION WIDTH 14.3 % (10.0-14.5); WHITE BLOOD COUNT 5.9 10^3/uL (4.3-11.0)
[2019-04-14] MEDS: NITROGLYCERIN 0.4 MG SL TABS BTL 25'S SL PRN ×2 (12:55→13:01)
[2019-04-14 12:57] LABS: INR 0.9 (0.8-1.4); PROTHROMBIN TIME PATIENT 12.1 SEC (12.2-14.7)
[2019-04-14 13:06] LABS: ALANINE AMINOTRANSFERASE 18 U/L (0-55); ALBUMIN 4.3 GM/DL (3.2-4.5); ALKALINE PHOSPHATASE 88 U/L (40-136); BILIRUBIN,TOTAL 0.4 MG/DL (0.1-1.0); BUN/CREATININE RATIO 13; CALCIUM 9.2 MG/DL (8.5-10.1); CARBON DIOXIDE 26 MMOL/L (21-32); CHLORIDE 106 MMOL/L (98-107); CREATININE SERUM 1.02 MG/DL (0.60-1.30); GFR ESTIMATED 57; GLUCOSE 61 MG/DL (70-105); POTASSIUM 3.2 MMOL/L (3.6-5.0); SODIUM 143 MMOL/L (135-145); TOTAL PROTEIN 7.5 GM/DL (6.4-8.2)
--- NOTE | 2019-04-14 13:09 | Diagnostic Imaging Report ---
INDICATION: Chest pain. COMPARISON: Comparison made with prior examination 04/02/2016. FINDINGS: The heart size, mediastinal configuration, and pulmonary vascularity are within normal limits. There is no pleural effusion, pneumothorax, or pneumonia. The osseous structures are unremarkable. IMPRESSION: No acute cardiopulmonary abnormality. Dictated by: Dictated on workstation # [id number]
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
[2019-04-14] MEDS ORDERED: HOLD METFORMIN - RECEIVED CONTRAST 20 ML VIAL IV SCH (13:30)
[2019-04-14] MEDS ORDERED: IOHEXOL 350 MG/ML 100 ML (OMNIPAQUE 350) VIAL IV ONE (13:30)
[2019-04-14] MEDS ORDERED: NS 100 ML (IVPB) BAG IV ONE (13:30)
--- NOTE | 2019-04-14 14:21 | Diagnostic Imaging Report ---
PROCEDURE: CT angiography of the chest with contrast. TECHNIQUE: Multiple contiguous axial images were obtained through the chest after uneventful bolus administration of intravenous contrast. 3D reconstructed CTA MIP acquisitions were also performed. Auto Exposure Controls were utilized during the CT exam to meet ALARA standards for radiation dose reduction. INDICATION: Left-sided chest pain. Evaluate for pulmonary embolism. FINDINGS: There is adequate opacification of pulmonary arterial system for diagnostic evaluation. There are no filling defects to suggest pulmonary emboli. Thoracic aorta demonstrates no dissection or aneurysm. Heart size is appropriate. There is no pericardial collection. There are linear densities within the lungs posteriorly most compatible with dependent atelectasis. There is no dense alveolar consolidation or focal pneumonia evident. There is no effusion. There is no pneumothorax. No pathologic enlargement of mediastinal, hilar or axillary lymph nodes demonstrated. The upper abdomen demonstrates no acute process. There has been prior cholecystectomy. No acute or suspicious osseous abnormality demonstrated. IMPRESSION: 1. No CT angiographic evidence of pulmonary embolism. 2. Thoracic aorta is unremarkable. 3. Linear densities posteriorly within the lungs are most compatible with regions of dependent atelectasis. There is no dense alveolar consolidation or evidence of an effusion. 4. No pathologic adenopathy. 5. No acute or suspicious osseous abnormality. Dictated by: Dictated on workstation # [id number]
[2019-04-14 17:05] VITALS: BP 127/72
== END 2019-04-14 17:05 | disposition home or self-care (01) ==
LOC: ER 12:25
DX: R07.89 Other chest pain (principal); F32.9 Major depressive disorder, single episode, unspecified; Z87.820 Personal history of traumatic brain injury; Z79.52 Long term (current) use of systemic steroids
CPT/HCPCS: 36415; 71045; 71275; 80053; 83735; 83874; 84484; 85025; 85379; 85610; 85730; 93005; 93041

== ENCOUNTER → 2019-06-11 | Outpatient (CLI) | payer OTHER ==
[~2019-06-11] VITALS: Ht 160 cm; Wt 91.0 kg
[~2019-06-11] MED LIST changes: +REGADENOSON 0.4 MG/5 ML SYR (LEXISCAN) IV ONE
[2019-06-11] MEDS: CATHETER FLUSH 10 ML SYR IV PRN ×2 (07:25→08:58)
[2019-06-11 08:56] VITALS: BP 142/92
--- NOTE | 2019-06-11 14:34 | STRESS TEST ---
DATE OF SERVICE: 06/11/2019 RESTING AND POST REGADENOSON TECHNETIUM-99M TETROFOSMIN SPECT CT IMAGING ORDERING PHYSICIAN: Dr. Mcknight. PRIMARY PHYSICIAN: Dr. Linda Kaur. CLINICAL DIAGNOSIS: Chest discomfort. Baseline images were carried out after injection of 10.89 mCi of technetium-99m Tetrofosmin. This was followed by 0.4 mg regadenoson and 30.4 mCi of technetium-99m Tetrofosmin for stress imaging. The electrocardiogram showed sinus rhythm with nonspecific ST and T-wave abnormality at baseline. It did not change significantly with regadenoson infusion. The patient did not report symptoms. Review of images at rest and following stress does not indicate any significant perfusion defects consistent with significant myocardial ischemia or an infarction. Gated images show normal global left ventricular systolic function with normal regional wall motion. Left ventricular ejection fraction is calculated to be 73%. Left ventricular end diastolic volume is 25 mL. TID is absent (0.91). CONCLUSIONS: 1. No evidence of any significant myocardial ischemia or infarction on this study. 2. Normal regional wall motion. 3. Normal global left ventricular systolic function with a calculated ejection fraction of 73%. Job ID: [id number] DocumentID: [id number] Dictated Date: 06/11/2019 14:19:41 Local Truck Driver Date: 06/11/2019 14:34:51 Dictated By: EDIS MCKNIGHT MD, MA, FACP, FACC,
== END ==
LOC: CARD 07:10
PROVIDERS: ATTEND Internal Medicine Cardiovascular Disease
DX: R07.9 Chest pain, unspecified (principal); E78.5 Hyperlipidemia, unspecified; E66.9 Obesity, unspecified; R00.2 Palpitations
CPT/HCPCS: 78452; 93017

== ENCOUNTER → 2019-06-12 | Outpatient (CLI) | payer OTHER ==
[~2019-06-12] MED LIST changes: -REGADENOSON 0.4 MG/5 ML SYR (LEXISCAN) IV ONE
== END ==
LOC: CARD 11:09
PROVIDERS: ATTEND Internal Medicine Cardiovascular Disease
DX: R07.9 Chest pain, unspecified (principal); E78.5 Hyperlipidemia, unspecified; E66.9 Obesity, unspecified; R00.2 Palpitations
CPT/HCPCS: 93225; 93226; 93306